=== PATIENT | male | born 1970 | race Caucasian/White ===

== ENCOUNTER 2024-07-07 05:06 | Day surgery (SDC) | payer OTHER ==
[2024-07-07] VITALS (215 sets, daily range): BP systolic 81–184; BP diastolic 52–115
[~2024-07-07] VITALS: Ht 177.8 cm; Wt 88.6 kg
[~2024-07-07 05:06] MED LIST: SODIUM CHLORIDE 0.9% 1,000 ML IV PRN
[2024-07-07] MEDS ORDERED: CYANOCOBALAMIN 500 MCG/TAB ( B12) PO PRN (07:30)
[2024-07-07] MEDS ORDERED: diazePAM 5 MG/TAB PO PRN ×2 (07:30→08:30)
[2024-07-07] MEDS ORDERED: ALBUTEROL SULFATE 2.5 MG VIAL IN PRN (07:30)
[2024-07-07] MEDS ORDERED: SCOPOLAMINE 1.5 MG DIS TD PRN (07:30)
[2024-07-07] MEDS ORDERED: PANTOPRAZOLE SODIUM Sesquihydr 40 MG/TAB PO PRN (07:30)
[2024-07-07] MEDS ORDERED: cloNIDine HCL 0.1 MG/TAB PO PRN (07:30)
[2024-07-07] MEDS ORDERED: FAMOTIDINE 20 MG/TAB PO PRN (07:30)
[2024-07-07] MEDS ORDERED: LACTATED RINGER'S 1,000 ML IV PRN ×2 (07:30→10:55)
[2024-07-07] MEDS ORDERED: DEXMEDETOMIDINE HCL IN SODIUM 100 ML IV SCH (07:45)
[2024-07-07] MEDS ORDERED: ASCORBIC ACID 4,000 MG in SODIUM CHLORIDE 0.9% 1,000 ML IV SCH (08:00)
[2024-07-07] MEDS ORDERED: diazePAM 5 MG/TAB PO SCH (08:15)
[2024-07-07] MEDS ORDERED: NICOTINE TRANSDERMAL 21 MG/PATCH TD SCH (08:15)
[2024-07-07] MEDS ORDERED: NORVASC PO (08:42)
[2024-07-07] MEDS ORDERED: METOPROLOL SUCC50 MG PO (08:43)
[2024-07-07] MEDS ORDERED: LOSARTAN POTAS100 MG PO (08:43)
[2024-07-07 09:31] LABS: BASO% 0.3 % (0-3); HEMATOCRIT 41.3 % (39.0-50.0); HEMOGLOBIN 14.3 g/dl (14.0-18.0); IMMATURE GRANULOCYTES 0.2 % (0.0-5.0); LYMPH% 23.2 % (15-41); MEAN CELL VOLUME 87.5 fL CALC (80.0-100.0); MEAN CORPUSCULAR HGB 30.3 pG CALC (26.0-32.0); MEAN CORPUSCULAR HGB CONC 34.6 g/dL CAL (32.0-36.0); MONO% 6.1 % (2-13); NEUT# 7.32 thou/uL (1.82-7.42); NEUT% 69.2 % (42-76); RED BLOOD COUNT 4.72 mill/uL (4.70-6.10); RED CELL DISTRI WIDTH 13.8 % (11.5-15.5)
[2024-07-07 09:42] LABS: BILIRUBIN, TOTAL 0.7 mg/dL (0.2-1.3); CREATININE 1.9 mg/dL (0.7-1.3); POTASSIUM 4.3 mmol/l (3.5-5.1); TOTAL PROTEIN 7.9 g/dL (6.3-8.2)
[2024-07-07] MEDS ORDERED: cloNIDine HYDROCHLORIDE 100 MCG/ML 10 ML INJ IV PRN (10:55)
[2024-07-07] MEDS ORDERED: PROPOFOL 10 MG/ML 100ML VIAL IV PRN (10:55)
[2024-07-07] MEDS ORDERED: DiphenhydrAMINE HCL 50 MG/ML SDV IV PRN (10:55)
[2024-07-07] MEDS ORDERED: LIDOCAINE HCL 1% (10MG/ML) 100 MG/10 ML MDV VT PRN ×2 (10:55)
[2024-07-07] MEDS ORDERED: diazePAM 5 MG/TAB VT PRN (10:55)
[2024-07-07] MEDS ORDERED: STERILE WATER FOR IRRIGATION 1,000 ML BTL IR PRN (10:55)
[2024-07-07] MEDS ORDERED: SODIUM CHLORIDE 0.9% 1,000 ML IV PRN ×2 (10:55→14:00)
[2024-07-07] MEDS ORDERED: MAGNESIUM SULFATE HEPTAHYDRATE 100 ML IV PRN (10:55)
[2024-07-07] MEDS ORDERED: THIAMINE HCL 100 MG/ML 2ML VIAL IV PRN (10:55)
[2024-07-07] MEDS ORDERED: ONDANSETRON HCl 4 MG/2 ML SDV IV PRN ×3 (10:55→19:00)
[2024-07-07] MEDS ORDERED: LIDOCAINE HCL 1% (10MG/ML) 100 MG/10 ML MDV IV PRN (10:55)
[2024-07-07] MEDS ORDERED: OCTREOTIDE ACETATE 100 MCG/VIAL SDV SC PRN (10:55)
[2024-07-07] MEDS ORDERED: POTASSIUM CHLORIDE 20 MEQ/100 ML BAG IV PRN (10:55)
[2024-07-07] MEDS ORDERED: MIDAZOLAM HCL 2 MG/2 ML VIAL IV PRN ×3 (10:55→14:05)
[2024-07-07] MEDS ORDERED: cloNIDine HCL 0.1 MG/TAB VT PRN (10:55)
[2024-07-07] MEDS ORDERED: PROPOFOL 100 ML IV PRN (10:55)
[2024-07-07] MEDS ORDERED: ROCURONIUM BROMIDE 10 MG/ML 5 ML VIAL IV PRN (10:55)
[2024-07-07] MEDS ORDERED: SUCCINYLCHOLINE CHLORIDE 20 MG/ML 10ML VIAL IV PRN (10:55)
[2024-07-07] MEDS ORDERED: NALTREXONE HCL 50 MG/TAB VT PRN (10:55)
[2024-07-07] MEDS ORDERED: NALTREXONE50 MG PO (18:03)
[2024-07-07] MEDS ORDERED: CLONIDINE0.1 MG PO (18:03)
[2024-07-07] MEDS ORDERED: KLONOPIN2 MG PO (18:04)
[2024-07-07] MEDS ORDERED: METOPROLOL TARTRATE 5 MG/5 ML VIAL IV PRN (18:25)
[2024-07-07] MEDS ORDERED: ACETAMINOPHEN 1,000 MG/100 ML VIAL IV PRN (19:00)
[2024-07-07] MEDS ORDERED: ACETAMINOPHEN 500 MG TAB PO PRN (19:00)
[2024-07-07] MEDS ORDERED: HALOPERIDOL LACTATE 5 MG/ML SDV IV PRN (19:00)
[2024-07-07] MEDS ORDERED: PROMETHAZINE HCL 12.5 MG in SODIUM CHLORIDE 0.9% 50 ML IV PRN (19:00)
[2024-07-07] MEDS ORDERED: KETOROLAC TROMETHAMINE 30 MG/ML SDV IV PRN (19:00)
[2024-07-07] MEDS ORDERED: PROMETHAZINE HCL 25 MG in SODIUM CHLORIDE 0.9% 50 ML IV PRN (19:00)
[2024-07-07] MEDS ORDERED: PATIENT' OWN MED CONTROLLED 1 EA DOSE IV PRN (21:00)
[2024-07-07] MEDS ORDERED: cloNIDine HCL 0.1 MG/TAB PO SCH (23:00)
[2024-07-07] MEDS ORDERED: clonazePAM 1 MG/TAB PO PRN (23:00)
[2024-07-08 03:06] VITALS: BP 171/96
[2024-07-08] MEDS ORDERED: NALTREXONE HCL 50 MG/TAB PO SCH (04:00)
[2024-07-08] MEDS ORDERED: cloNIDine HCL 0.1 MG/TAB PO PRN (04:00)
[2024-07-08] MEDS ORDERED: clonazePAM 1 MG/TAB PO PRN ×3 (04:00→23:00)
[2024-07-08 05:44] LABS: BASO% 0.1 % (0-3); HEMOGLOBIN 16.7 g/dl (14.0-18.0); IMMATURE GRANULOCYTES 0.3 % (0.0-5.0); MEAN CELL VOLUME 88.4 fL CALC (80.0-100.0); MEAN CORPUSCULAR HGB 30.8 pG CALC (26.0-32.0); MEAN CORPUSCULAR HGB CONC 34.8 g/dL CAL (32.0-36.0); MONO% 2.5 % (2-13); NEUT# 16.12 thou/uL (1.82-7.42); NEUT% 91.1 % (42-76); RED BLOOD COUNT 5.43 mill/uL (4.70-6.10); RED CELL DISTRI WIDTH 13.3 % (11.5-15.5)
[2024-07-08 05:59] LABS: ALBUMIN 4.3 g/dL (3.2-5.0); CREATININE 1.3 mg/dL (0.7-1.3); MAGNESIUM 2.7 mg/dL (1.6-2.3); POTASSIUM 4.3 mmol/l (3.5-5.1); TOTAL PROTEIN 8.6 g/dL (6.3-8.2)
[2024-07-08 06:01] LABS: BILIRUBIN, TOTAL 1.1 mg/dL (0.2-1.3)
[2024-07-08 06:42] VITALS: BP 151/93
[2024-07-08] MEDS ORDERED: cloNIDine HCL 0.1 MG/TAB PO SCH ×2 (08:00→23:00)
[2024-07-08] MEDS ORDERED: PANTOPRAZOLE SODIUM Sesquihydr 40 MG/TAB PO SCH (08:00)
[2024-07-08] MEDS ORDERED: ACETAMINOPHEN 325 MG/TAB PO SCH (08:00)
[2024-07-08] MEDS ORDERED: ACETAMINOPHEN 500 MG TAB PO PRN (09:00)
[2024-07-08] MEDS ORDERED: Cholecalciferol 2,000 UNIT/TAB PO PRN (09:00)
[2024-07-08] MEDS ORDERED: MAGNESIUM OXIDE 400 MG/TAB PO PRN (09:00)
[2024-07-08] MEDS ORDERED: KETOROLAC TROMETHAMINE 30 MG/ML SDV IV PRN (19:00)
[2024-07-08] MEDS ORDERED: LACTATED RINGER'S 1,000 ML IV PRN (19:00)
[2024-07-08] MEDS ORDERED: PROMETHAZINE HCL 25 MG in SODIUM CHLORIDE 0.9% 50 ML IV PRN (19:00)
[2024-07-08 21:50] VITALS: BP 174/112
[2024-07-09] VITALS (54 sets, daily range): BP systolic 88–188; BP diastolic 64–116
[2024-07-09] MEDS ORDERED: cloNIDine HCL 0.1 MG/TAB PO PRN (04:00)
[2024-07-09] MEDS ORDERED: NALTREXONE HCL 50 MG/TAB PO SCH (04:00)
[2024-07-09] MEDS ORDERED: clonazePAM 1 MG/TAB PO PRN (04:00)
[2024-07-09 05:04] LABS: ALBUMIN 4.1 g/dL (3.2-5.0); BILIRUBIN, TOTAL 1.3 mg/dL (0.2-1.3); CREATININE 1.1 mg/dL (0.7-1.3); MAGNESIUM 2.3 mg/dL (1.6-2.3); POTASSIUM 4.1 mmol/l (3.5-5.1)
[2024-07-09 05:05] LABS: BASO% 0.1 % (0-3); HEMATOCRIT 46.1 % (39.0-50.0); HEMOGLOBIN 16.5 g/dl (14.0-18.0); IMMATURE GRANULOCYTES 0.2 % (0.0-5.0); LYMPH% 5.9 % (15-41); MEAN CORPUSCULAR HGB 30.8 pG CALC (26.0-32.0); MEAN CORPUSCULAR HGB CONC 35.8 g/dL CAL (32.0-36.0); MONO% 6.3 % (2-13); NEUT# 14.9 thou/uL (1.82-7.42); NEUT% 87.5 % (42-76); RED BLOOD COUNT 5.36 mill/uL (4.70-6.10); RED CELL DISTRI WIDTH 13.3 % (11.5-15.5)
[2024-07-09] MEDS ORDERED: METOPROLOL TARTRATE 5 MG/5 ML VIAL IV SCH ×2 (09:30→12:30)
[2024-07-09] MEDS ORDERED: LABETALOL HCL 20 MG/ 4 ML CARTRG IV SCH (10:45)
[2024-07-09] MEDS ORDERED: hydrALAZINE HCL 20 MG/ML VIAL(1 ML) IV SCH (10:45)
[2024-07-09] MEDS ORDERED: FUROSEMIDE 40 MG/4 ML SDV IV SCH (11:00)
[2024-07-09] MEDS ORDERED: HALOPERIDOL LACTATE 5 MG/ML SDV IV SCH (11:30)
[2024-07-09] MEDS ORDERED: SODIUM CHLORIDE 0.9% 250 ML IV ONE (11:54)
[2024-07-09] MEDS ORDERED: METOPROLOL TARTRATE 5 MG/5 ML VIAL IV ONE (11:55)
[2024-07-09] MEDS ORDERED: AZITHROMYCIN 500 MG in SODIUM CHLORIDE 0.9% 250 ML IV SCH (12:00)
[2024-07-09] MEDS ORDERED: DILTIAZEM HCL 125 MG in SODIUM CHLORIDE 0.9% 100 ML IV SCH (12:05)
[2024-07-09] MEDS ORDERED: ASPIRIN 300 MG/SUP RE SCH (12:15)
[2024-07-09] MEDS ORDERED: Heparin SODIUM (Porcine) 5,000 UNITS/ML SDV IV SCH (12:30)
[2024-07-09 12:37] LABS: ACT PARTIAL THROMBO TIME 25.9 SECONDS (20.0-32.5); INTERNATIONAL NORMALIZED RATIO 1.1 RATIO (0.7-1.3)
[2024-07-09 12:52] LABS: PROTHROMBIN TIME 12.2 SECONDS (9.0-12.5)
[2024-07-09] MEDS ORDERED: Heparin SODIUM (Porcine) 500 ML IV PRN (13:20)
== END 2024-07-09 13:55 | DRG 897 ==
LOC: ANR 05:06 → MS2 05:06 → ANR 09:00 → MS2 18:17 → ANR 07-09 13:55
PROVIDERS: ATTEND Anesthesiology Critical Care Medicine
PROC: 5A09357 Assistance with Respiratory Ventilation, Less than 24 Consecutive Hours, Continuous Positive Airway Pressure (ICD-10-PCS; principal; 2024-07-09)
DX: F11.20 Opioid dependence, uncomplicated (principal); I24.9 Acute ischemic heart disease, unspecified; I11.9 Hypertensive heart disease without heart failure
CPT/HCPCS: J0360; J0456; J1100; J1200; J1644; J1940; J2354; J2405; J2550; J2704; J3411; J3475; J3480; J3490